=== PATIENT | female | born 1980 | race Caucasian/White ===

== ENCOUNTER 2018-02-10 07:47 | Day surgery (SDC) | END 2018-02-10 14:15 | disposition home or self-care (01) ==

== ENCOUNTER 2018-05-19 11:18 | Observation (INO) | END 2018-05-20 20:10 | disposition home or self-care (01) ==

== ENCOUNTER 2018-10-03 07:28 | Day surgery (SDC) | END 2018-10-03 13:22 | disposition home or self-care (01) ==